=== PATIENT | female | born 1985 | race African-American/Black ===

== ENCOUNTER 2018-08-11 11:03 | Emergency (ER) | payer BC ==
[~2018-08-11] VITALS: Ht 165.1 cm; Wt 59.0 kg
[~2018-08-11 11:03] MED LIST: NKM
--- NOTE | 2018-08-11 11:40 | NUR ---
ED Nurse Note: pt came in due to abdominal pain started yesterday, pt also complains of nausea and vomiting and 10/10 pain all over her abdomen.pt able to give urine specimen and was sent to lab. will continue to monitor
[2018-08-11 11:50] VITALS: BP 111/79
[2018-08-11] MEDS ORDERED: Metoclopramide 10mg/2ml Inj IVP ONE (12:00)
[2018-08-11] MEDS ORDERED: DiphenhydrAMINE 50mg/ml Inj IVP ONE (12:00)
[2018-08-11] MEDS ORDERED: Morphine Sulfate 4mg/ml Inj (IV USE ONLY) IVP ONE (12:00)
[2018-08-11 12:18] LABS: APPEARANCE,URINE CLEAR; BILIRUBIN, URINE NEGATIVE (NEGATIVE); COLOR,URINE PALE YELLOW; EOSINOPHILS % (AUTO) 0.1 % (0.0-3.0); GLUCOSE, URINE (UA) NEGATIVE (NEGATIVE); HEMATOCRIT 42.6 % (37.0-47.0); HEMOGLOBIN 14.1 G/DL (12.0-16.0); KETONES,URINE NEGATIVE (NEGATIVE); LEUKOCYTE ESTERASE ,URINE 1+ (NEGATIVE); LYMPHOCYTES % (AUTO) 24.2 % (20.0-45.0); MEAN CORPUSCULAR VOLUME 83 FL (80-99); MONOCYTES % (AUTO) 4.2 % (1.0-10.0); NEUTROPHILS % (AUTO) 70.6 % (45.0-75.0); NITRITE,URINE NEGATIVE (NEGATIVE); PH,URINE 6 (4.5-8.0); PLATELET COUNT 214 K/UL (150-450); PROTEIN,URINE NEGATIVE (NEGATIVE); RED BLOOD COUNT 5.16 M/UL (4.20-5.40); RED CELL DISTRIBUTION WIDTH 11.3 % (11.6-14.8); UROBILINOGEN,URINE NORMAL MG/DL (0.0-1.0); WHITE BLOOD COUNT 9.6 K/UL (4.8-10.8)
[2018-08-11 12:27] LABS: ANION GAP 10 mmol/L (5-15); BLOOD UREA NITROGEN 10 mg/dL (7-18); CALCIUM 9.3 MG/DL (8.5-10.1); CARBON DIOXIDE 27 MMOL/L (21-32); CHLORIDE 104 MMOL/L (98-107); CREATININE 0.9 MG/DL (0.55-1.30); POTASSIUM 4.1 MMOL/L (3.5-5.1); SODIUM 141 MMOL/L (136-145)
[2018-08-11 12:32] LABS: ALANINE AMINOTRANSFERASE 28 U/L (12-78); ALBUMIN 4.2 G/DL (3.4-5.0); ALKALINE PHOSPHATASE 57 U/L (46-116); ASPARTATE AMINO TRANSFERASE 23 U/L (15-37)
--- NOTE | 2018-08-11 12:55 | NUR ---
ED Nurse Note: pt is still complaining of 10/10 abdominal pain, no vomiting occured, ermd made aware and ordered dilaudid and was given. pt able to tolerate well. will continue to monitor.
[2018-08-11] MEDS ORDERED: HYDROmorphone 1mg/ml Carpuject IVP ONE (13:00)
--- NOTE | 2018-08-11 13:30 | NUR ---
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
[2018-08-11] MEDS ORDERED: Ketorolac 30mg Inj IV ONE (14:15)
--- NOTE | 2018-08-11 14:25 | NUR ---
pelvic exam done by dr anderson specimen collected. meds given for pain
[2018-08-11] MEDS ORDERED: cefTRIAXone 1 GM in NS 55 ML IVPB ONE (14:30)
[2018-08-11] MEDS ORDERED: Azithromycin 250mg tab ORAL ONE (14:30)
--- NOTE | 2018-08-11 15:48 | Emergency Room Report ---
History of Present Illness General Chief Complaint: Vaginal Source: Patient Present Illness HPI Patient presents with severe abdominal pain. Suprapubic. She rates it 10/10 constant. This pressure and aching. She denies any dysuria or fevers. She also feels nauseated. She believes she had food poisoning yesterday. This pain began yesterday also. Denies any diarrhea. She is worried because she had unprotected sex a week ago. He has not taken any medication for the pain. She was drinking alcohol last night. She is extremely anxious about this pain. Her last menstrual period was August 05. She is uncertain whether she is at this time. She is never had this pain before. No rashes or lymphadenopathy. Last Pap smear 2 months ago and normal. She gets yeast infections when treated with antibiotics. 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 Last Menstrual Period: - Now: No Reviewed Nursing Documentation: PMH: Agreed; PSxH: Agreed Nursing Documentation-PMH Past Medical History: No History, Except For Review of Systems All Other Systems: negative except mentioned in HPI Physical Exam Vital Signs Date Time Temp Pulse Resp B/P (MAP) Pulse Ox O2 Delivery O2 Flow Rate FiO2 08/11/18 11:10 98.1 92 20 111/79 (90) 97 Room Air Sp02 EP Interpretation: reviewed, normal General Appearance: well appearing, GCS 15, non-toxic, moderate distress - Anxious and unable to lay down flat Head: normocephalic, atraumatic Eyes: bilateral eye PERRL, bilateral eye EOMI, bilateral eye Scleral Injection ENT: moist mucus membranes - Alcohol on breath Neck: supple Respiratory: lungs clear, normal breath sounds Cardiovascular #1: regular rate, rhythm Cardiovascular #2: 2+ radial (R) Gastrointestinal: non-distended, no rebound, tenderness - Suprapubic and refuses to allow exam, decreased bowel sounds Genitourinary: normal inspection, cervix normal, uterus normal, other - Right adnexal tenderness, no masses, menstrual blood, no cervical motion tenderness Musculoskeletal: back normal, gait/station normal, normal range of motion Neurologic: alert, oriented x3, grossly normal Psychiatric: anxious Skin: normal inspection, warm/dry Medical Decision Making Diagnostic Impression: Primary Impression: Pelvic pain Additional Impression: Possible exposure to STD ER Course Patient presents with 2 days of increased abdominal pain after unprotected sex. Differential includes early , threatened , ovarian cyst, ovarian torsion, ectopic , tubo-ovarian abscess/PID, UTI amongst others. Evaluation will be with labs and pelvic ultrasound. The patient is in moderate distress and will be treated with IV hydration and analgesia. Consideration for empiric treatment with antibiotics is undertaken. Labs with normal white count, negative and blood in urine. Pelvic ultrasound unremarkable except unable to visualize right ovary. (Pelvic exam done after analgesia and pelvic ultrasound.) Wet mount unremarkable. Blood alcohol positive. Patient required repeat analgesia. Finally Toradol was given. Discussed suggested treatment with antibiotics for STD as lab tests would take at least a week. Rocephin and azithromycin given. Patient improved with treatment. Discussed the need for close outpatient follow -up. She was advised to return if the pain became uncontrolled, fevers or vomiting. Discussed alcohol. Patient stable for outpatient observation and treatment. Laboratory Tests Test 08/11/18 11:55 White Blood Count 9.6 K/UL (4.8-10.8) Red Blood Count 5.16 M/UL (4.20-5.40) Hemoglobin 14.1 G/DL (12.0-16.0) Hematocrit 42.6 % (37.0-47.0) Mean Corpuscular Volume 83 FL (80-99) Mean Corpuscular Hemoglobin 27.4 PG (27.0-31.0) Mean Corpuscular Hemoglobin Concent 33.1 G/DL (32.0-36.0) Red Cell Distribution Width 11.3 % (11.6-14.8) L Platelet Count 214 K/UL (150-450) Mean Platelet Volume 7.4 FL (6.5-10.1) Neutrophils (%) (Auto) 70.6 % (45.0-75.0) Lymphocytes (%) (Auto) 24.2 % (20.0-45.0) Monocytes (%) (Auto) 4.2 % (1.0-10.0) Eosinophils (%) (Auto) 0.1 % (0.0-3.0) Basophils (%) (Auto) 1.0 % (0.0-2.0) Prothrombin Time 10.5 SEC (9.30-11.50) Prothrombin Time INR 1.0 (0.9-1.1) PTT 31 SEC (23-33) Urine Color Pale yellow Urine Appearance Clear Urine pH 6 (4.5-8.0) Urine Specific Trail 1.010 (1.005-1.035) Urine Protein Negative (NEGATIVE) Urine Glucose (UA) Negative (NEGATIVE) Urine Ketones Negative (NEGATIVE) Urine Blood 1+ (NEGATIVE) H Urine Nitrite Negative (NEGATIVE) Urine Bilirubin Negative (NEGATIVE) Urine Urobilinogen Normal MG/DL (0.0-1.0) Urine Leukocyte Esterase 1+ (NEGATIVE) H Urine RBC 0-2 /HPF (0 - 2) Urine WBC 0-2 /HPF (0 - 2) Urine Squamous Epithelial Cells Few /LPF (NONE/OCC) Urine Bacteria Few /HPF (NONE) Urine HCG, Qualitative Negative (NEGATIVE) Sodium Level 141 MMOL/L (136-145) Potassium Level 4.1 MMOL/L (3.5-5.1) Chloride Level 104 MMOL/L (98-107) Carbon Dioxide Level 27 MMOL/L (21-32) Anion Gap 10 mmol/L (5-15) Blood Urea Nitrogen 10 mg/dL (7-18) Creatinine 0.9 MG/DL (0.55-1.30) Estimate Glomerular Filtration Rate > 60 mL/min (>60) Glucose Level 92 MG/DL (74-106) Calcium Level 9.3 MG/DL (8.5-10.1) Total Bilirubin 1.0 MG/DL (0.2-1.0) Aspartate Amino Transferase (AST) 23 U/L (15-37) Alanine Aminotransferase (ALT) 28 U/L (12-78) Alkaline Phosphatase 57 U/L (46-116) Total Protein 8.6 G/DL (6.4-8.2) H Albumin 4.2 G/DL (3.4-5.0) Globulin 4.4 g/dL Albumin/Globulin Ratio 1.0 (1.0-2.7) Lipase 102 U/L (73-393) Urine Opiates Screen Negative (NEGATIVE) Urine Barbiturates Screen Negative (NEGATIVE) Phencyclidine (PCP) Screen Negative (NEGATIVE) Urine Amphetamines Screen Negative (NEGATIVE) Urine Benzodiazepines Screen Negative (NEGATIVE) Urine Cocaine Screen Negative (NEGATIVE) Urine Marijuana (THC) Screen Positive (NEGATIVE) H Serum Alcohol 119 mg/dL Chlamydia trachomatis RNA Pending Neisseria gonorrhoeae RNA Pending Microbiology Date/Time Source Procedure Growth Status 08/11/18 14:30 Vaginal Wet Prep - Final Complete CT/MRI/US Diagnostic Results CT/MRI/US Diagnostic Results : Imaging Test Ordered: Pelvic ultrasound Impression Normal uterus and left ovary. Right ovary not visualized. Small amount of free fluid in the cul-de-sac may be physiologic Last Vital Signs Date Time Temp Pulse Resp B/P (MAP) Pulse Ox O2 Delivery O2 Flow Rate FiO2 08/11/18 16:05 98.0 92 20 111/79 97 Room Air Status: improved Disposition: HOME, SELF-CARE Condition: Improved Scripts Fluconazole (FLUCONAZOLE) 100 Mg Tablet 100 MG ORAL ONCE, #1 TAB 0 Refills Prov: Keshav Bryant MD 08/11/18 Acetaminophen (Tylenol) 325 Mg Tablet 650 MG ORAL Q6H PRN for Prn Pain/Headache/Temp > 101, #20 TAB 0 Refills Prov: Keshav Bryant MD 08/11/18 Ibuprofen* (MOTRIN*) 600 Mg Tablet 600 MG ORAL Q6H PRN for For Pain, #20 TAB 0 Refills Prov: Keshav Bryant MD 08/11/18 Referrals: NOT CHOSEN [facility]/,REFERRING (PCP) Keshav Bryant MD August 11, 2018 15:48
[2018-08-11] MEDS ORDERED: FLUCONAZOLE100 MG ORAL (15:52)
[2018-08-11] MEDS ORDERED: TYLENOL325 MG ORAL (15:52)
[2018-08-11] MEDS ORDERED: IBUPROFEN600 MG ORAL (15:52)
[2018-08-11 16:05] VITALS: BP 111/79
--- NOTE | 2018-08-11 16:05 | NUR ---
ER DISCHARGE NOTE: Patient is cleared to be discharged per ERMD, pt is aox4, on room air, with stable vital signs. pt was given dc and prescription instructions, pt was able to verbalize understanding, pt id band and iv site removed without complications. pt is able to ambulate with steady gait. pt took all belongings.
--- NOTE | 2018-08-12 10:21 | Diagnostic Imaging Report ---
Indication:Lower abdominal and pelvic pain Technique: Grayscale and duplex Doppler imaging of the pelvis performed utilizing a transabdominal and endovaginal scan. Comparison: None Findings: The size, contour, and configuration of the uterus is within normal limits. The endometrium is uniformly echogenic and normal in thickness. Endometrium is 3.8 mm in thickness. Uterus measures 6.2 x 3.2 x 4.3 cm. Right ovary is not seen. The left ovary appears normal with dopplerable blood flow measuring 3.1 x 1.8 x 2.6 cm. Trace fluid in the cul-de-sac noted. IMPRESSION: Negative pelvic ultrasound. No acute findings.
== END 2018-08-11 16:05 | disposition home or self-care (01) ==
LOC: EMR 11:40
DX: R10.2 Pelvic and perineal pain (principal); Z20.2 Contact with and (suspected) exposure to infections with a predominantly sexual mode of transmission; R11.0 Nausea
CPT/HCPCS: 36415; 76830; 76856; 80053; 80307; 81003; 81025; 83690; 85025; 85610; 85730; 86850; 86900; 86901; 87210; 87491; 87590; 96361; 96365; 96375; 99284; G0480; J0696; J1170; J1200; J1885; J2270; J2765; 80329

== ENCOUNTER 2019-01-13 08:56 | Emergency (ER) | payer BC ==
[~2019-01-13] VITALS: Ht 165.1 cm; Wt 61.2 kg
[~2019-01-13 08:56] MED LIST changes: +FLUCONAZOLE100 MG ORAL; +IBUPROFEN600 MG ORAL; +TYLENOL325 MG ORAL
[2019-01-13 09:05] VITALS: BP 141/95
--- NOTE | 2019-01-13 09:05 | NUR ---
ED Nurse Note: pt walked in to ED due to left shoudler pain that radiated to left arm. per pt, it feels like constant and pulling pain. hx of carpal tunnel syndrome. denies any injury. pt has pain for 1 week. unable to tolerate pain anymore. limited ROM due to pain. AAO x4. respirations even and non-labored noted. pt crying during assessment. boyfriend on the way. will wait for the further order.
[2019-01-13] MEDS ORDERED: HYDROcodone/Acetamin 7.5/325 tab ORAL ONE (09:15)
[2019-01-13] MEDS ORDERED: Ketorolac 30mg Inj IM ONE (09:15)
--- NOTE | 2019-01-13 09:15 | NUR ---
ED Nurse Note: RN confirmed with pt for . per pt,"I am not and wants medication without urine test."
--- NOTE | 2019-01-13 09:18 | Emergency Room Report ---
History of Present Illness General Chief Complaint: Neck Pain Source: Patient Present Illness HPI Disclaimer: Please note that this report is being documented using DRAGON technology. This can lead to erroneous entry secondary to incorrect interpretation by the dictating instrument. HPI: 33-year-old female with no reported medical history presents for evaluation of left shoulder and neck pain. Patient states she was moving a heavy drawer 1 week ago when she felt something "snap" in her shoulder and over the left trapezius extending to the neck. She has noted significant cramping and pain causing limitation to range of motion in the left upper extremity. Denies any fall, injury or history of dislocation. She is able to move all digits, the wrist, the elbow and has some range of motion of the shoulder though limited secondary to pain. She has been using NSAIDs at home without significant improvement. Pain acutely worsened today without new injury. She denies any headaches she is complaining of the left-sided neck pain reducing her range of motion in her neck as well. Denies fevers, chills, prior surgery in the left upper extremity or neck. PMH: Denies PSH: Cosmetic surgery Allergies: Denies Social Hx: Regular alcohol use, denies tobacco use or drug use Allergies: Coded Allergies: No Known Allergies (Unverified , 09/07/13) Patient History Last Menstrual Period: 12/30/2018 Nursing Documentation-PMH Past Medical History: No History, Except For Review of Systems All Other Systems: negative except mentioned in HPI Physical Exam Vital Signs Date Time Temp Pulse Resp B/P (MAP) Pulse Ox O2 Delivery O2 Flow Rate FiO2 01/13/19 09:01 98.2 81 20 141/95 (110) 99 Room Air General: Awake and alert, tearful and anxious in the room HEENT: NC/AT. EOMI. Resp: Normal work of breathing Skin: Intact. No abrasions, laceration or rash over the exposed skin MSK: Normal tone and bulk. Moving all extremities. No obvious deformity. Shoulders are in anatomic position. Pain with active and passive range of motion on abduction and rotation. There is tenderness palpation over the left paraspinal region in the cervical spine and upper thoracic spine extending over the trapezius, over the deltoids and down the triceps on the left side. There is no obvious deformity or step-off. Patient has preserved range of motion at the elbow, wrist and digits. Skydiving Instructor strength 5/5 and symmetrical bilaterally. Neuro: Awake and alert. Mentating appropriately. Sensation is intact over the dermatomes of the upper extremities bilaterally. Medical Decision Making Diagnostic Impression: Primary Impression: Paraspinal muscle spasm Additional Impressions: Trapezius muscle spasm Trapezius muscle strain ER Course Is a 33-year-old female presented for evaluation of 1 week worsening left-sided neck pain and shoulder pain after lifting a heavy drawer. Differential includes was not limited to occult fracture, shoulder dislocation, muscle strain , muscle spasm. Patient has significant tenderness over the trapezius and extending down to the triceps consistent with muscle spasm which we will treat with oral pain medication, intramuscular Toradol and Valium for muscle relaxation. We will obtain an x-ray of the left shoulder to rule out occult fracture or dislocation. Other X-Ray Diagnostic Results Other X-Ray Diagnostic Results : X-Ray ordered: Left Shoulder # of Views/Limited Vs Complete: Complete Indication: Pain EP Interpretation: Yes Interpretation: no dislocation, no soft tissue swelling, no fractures Impression: No acute disease Electronically Signed by: Electronically signed by Dr. Patrice Owen Reevaluation Time: 09:46 Last Vital Signs Date Time Temp Pulse Resp B/P (MAP) Pulse Ox O2 Delivery O2 Flow Rate FiO2 01/13/19 09:01 98.2 81 20 141/95 (110) 99 Room Air Reevaluation Impression X-rays of the left shoulder do not show any dislocation or fracture. Patient reports some improvement after medication but still complaining of pain. We will apply lidocaine patch prior to departure. I believe this is most likely a muscular strain and spasm which we will treat as an outpatient with NSAIDs, muscle relaxants, lidocaine patch and a short course of breakthrough pain medication to be used as needed. She can follow-up with her PMD for reevaluation within the next week and we discussed reasons to return to the emergency department. We discussed that she is not to drive or operate any heavy machinery while under the influence of narcotics and muscle relaxing medication. She understands and agrees with this treatment plan will be discharged home Disposition: HOME, SELF-CARE Condition: Stable Scripts Lidocaine Patch* (Lidoderm Patch*) 1 Each Adh..patch 1 PATCH TOPIC DAILY, #7 PATCH 0 Refills Patch(es) may remain in place for up to 12 hours in any 24-hour period. Prov: Patrice Owen MD 01/13/19 Hydrocodone Bit/Acetaminophen 5-325* (NORCO 5-325*) 1 Each Tablet 1 TAB ORAL Q6H PRN for For Pain, #5 TAB 0 Refills Prov: Patrice Owen MD 01/13/19 Ibuprofen* (MOTRIN*) 600 Mg Tablet 600 MG ORAL Q8H PRN for For Pain, #30 TAB 0 Refills Prov: Patrice Owen MD 01/13/19 Cyclobenzaprine Hcl* (FLEXERIL*) 10 Mg Tablet 10 MG ORAL TID PRN for Muscle Spasm, #20 TAB Prov: Patrice Owen MD 01/13/19 Referrals: NOT CHOSEN [facility]/,REFERRING (PCP) Patrice Owen MD Jan 13, 2019 09:18
[2019-01-13] MEDS ORDERED: LIDODERM700 M1 TOPIC (09:53)
[2019-01-13] MEDS ORDERED: NORCO 5-325 TA1 EACH ORAL (09:53)
[2019-01-13] MEDS ORDERED: IBUPROFEN600 MG ORAL (09:53)
[2019-01-13] MEDS ORDERED: CYCLOBENZAPRINE10 MG ORAL (09:53)
[2019-01-13 10:23] VITALS: BP 133/78
--- NOTE | 2019-01-13 10:24 | NUR ---
ER DISCHARGE NOTE: Patient is cleared to be discharged per ERMD with friend, pt is aox4, on room air, with stable vital signs. pt was given dc and prescription instructions, pt was able to verbalize understanding, pt id band removed without complications. pt is able to ambulate with steady gait. pt took all belongings.
--- NOTE | 2019-01-13 12:24 | Diagnostic Imaging Report ---
Indication: Left shoulder pain Technique: 3 views of the left shoulder Comparison: none Findings: No acute fractures. No dislocations. Joint spaces are preserved. There is thoracic scoliotic deformity incidentally noted. Impression: No acute process
== END 2019-01-13 10:25 | disposition home or self-care (01) ==
LOC: EMR 09:12
DX: M62.830 Muscle spasm of back (principal); S46.812A Strain of other muscles, fascia and tendons at shoulder and upper arm level, left arm, initial encounter; X50.0XXA Overexertion from strenuous movement or load, initial encounter; X50.9XXA Other and unspecified overexertion or strenuous movements or postures, initial encounter; Y92.9 Unspecified place or not applicable
CPT/HCPCS: 73030; 96372; 99283; J1885